=== PATIENT | female | born 1980 | race Caucasian/White ===

== ENCOUNTER 2018-06-09 04:31 | Emergency (ER) | payer SELFPAY ==
[~2018-06-09] VITALS: Ht 157.5 cm; Wt 54.4 kg
[~2018-06-09 04:31] MED LIST: ALBU8.5H8 IH; DIPH25CA83 PO
--- NOTE | 2018-06-09 04:48 | NUR ---
Dr Arteaga into eval patient
--- NOTE | 2018-06-09 04:50 | NUR ---
Avel larkin in ED - 06/09/[address] Arteaga at [facility] for JENNIFER.
[2018-06-09 05:21] LABS: BASOPHILS # (AUTO) 0.1 K/uL (0.0-8.0); BASOPHILS % (AUTO) 1.2 % (0.0-2.0); EOSINOPHILS # (AUTO) 0.3 K/uL (0.0-0.7); EOSINOPHILS % (AUTO) 4.5 % (0.0-7.0); HEMATOCRIT 38.6 % (31.2-41.9); HEMOGLOBIN 13.3 g/dL (10.9-14.3); LYMPHOCYTES # (AUTO) 2.1 K/uL (20.0-40.0); LYMPHOCYTES % (AUTO) 37.2 % (20.5-51.5); MEAN CORPUSCULAR HEMOGLOBIN 32.4 uug (24.7-32.8); MEAN CORPUSCULAR HGB CONC 34 g/dL (32.3-35.6); MEAN CORPUSCULAR VOLUME 94.1 fL (75.5-95.3); MONOCYTES # (AUTO) 0.8 K/uL (2.0-10.0); MONOCYTES % (AUTO) 13.8 % (0.0-11.0); NEUTROPHILS # (AUTO) 2.5 K/uL (1.8-8.9); NEUTROPHILS % (AUTO) 43.3 % (38.5-71.5); PLATELET COUNT (AUTO) 283 K/uL (179-408); WHITE BLOOD COUNT (AUTO) 5.7 K/uL (3.8-11.8)
[2018-06-09 05:23] LABS: CREATININE 0.8 mg/dL (0.6-1.3)
[2018-06-09 05:35] LABS: BILIRUBIN,DIRECT 0.1 mg/dL (0.0-0.2); BILIRUBIN,TOTAL 0.4 mg/dL (0.2-1.0); TOTAL PROTEIN, SERUM 7.2 g/dL (6.4-8.2)
--- NOTE | 2018-06-09 05:40 | NUR ---
Ultrasound at bedside.
--- NOTE | 2018-06-09 06:01 | NUR ---
Patient discharged to home in stable conditon. Written and verbal after care instructions given. Patient verbalizes understanding of instructions. Pt ambulated out of ER with steady gait, no acute signs of distress, VSS, all belongings taken.
[2018-06-09 06:03] VITALS: BP 131/69
== END 2018-06-09 06:03 | disposition home or self-care (01) ==
LOC: ER 04:35
DX: R60.9 Edema, unspecified (principal); J45.909 Unspecified asthma, uncomplicated; F17.200 Nicotine dependence, unspecified, uncomplicated; F11.10 Opioid abuse, uncomplicated; F15.10 Other stimulant abuse, uncomplicated
CPT/HCPCS: 36415; 71045; 80048; 80076; 83880; 84484; 85025; 85730; 93970; 99285; A4663; 70030-TC

== ENCOUNTER 2019-09-10 03:42 | Emergency (ER) | payer MEDICAID, OTHER ==
[~2019-09-10] VITALS: Ht 162.6 cm; Wt 56.7 kg
[2019-09-10] MEDS ORDERED: predniSONE 20 MG TABLET ONE (04:25)
[2019-09-10] MEDS ORDERED: ALBUTEROL SULFATE 2.5 MG/3 ML NEBU ONE (04:26)
[2019-09-10] MEDS ORDERED: IPRATROPIUM BROMIDE 0.5 MG/2.5 ML NEBU ONE (04:27)
[2019-09-10] MEDS ORDERED: predniSONE 10 MG TABLET PO ONE (04:30)
[2019-09-10] MEDS ORDERED: ALBUTEROL SULFATE 2.5 MG/3 ML NEBU NEB ONE (04:30)
[2019-09-10] MEDS ORDERED: IPRATROPIUM BROMIDE 0.5 MG/2.5 ML NEBU NEB ONE (04:30)
[2019-09-10 04:45] LABS: BASOPHILS % (AUTO) 0.9 % (0.0-2.0); EOSINOPHILS # (AUTO) 0.4 K/uL (0.0-0.7); EOSINOPHILS % (AUTO) 8.5 % (0.0-7.0); HEMATOCRIT 40.7 % (31.2-41.9); HEMOGLOBIN 13.7 g/dL (10.9-14.3); LYMPHOCYTES % (AUTO) 38.8 % (20.5-51.5); MEAN CORPUSCULAR HEMOGLOBIN 31.9 uug (24.7-32.8); MEAN CORPUSCULAR HGB CONC 34 g/dL (32.3-35.6); MEAN CORPUSCULAR VOLUME 95.1 fL (75.5-95.3); MONOCYTES # (AUTO) 0.7 K/uL (2.0-10.0); MONOCYTES % (AUTO) 14.1 % (0.0-11.0); NEUTROPHILS % (AUTO) 37.7 % (38.5-71.5); PLATELET COUNT (AUTO) 214 K/uL (179-408); RED BLOOD CELL COUNT(AUTO) 4.28 MIL/uL (3.63-4.92); WHITE BLOOD COUNT (AUTO) 5.2 K/uL (3.8-11.8)
[2019-09-10 04:51] LABS: CREATININE 0.7 mg/dL (0.6-1.3); POTASSIUM 4.1 mmol/L (3.5-5.1)
--- NOTE | 2019-09-10 04:55 | NUR ---
CONTINOUE WITH SHORTNESS OF BREATH RECEIVING NEB TREATMENT.
[2019-09-10 05:04] LABS: BILIRUBIN,DIRECT 0.1 mg/dL (0.0-0.2); BILIRUBIN,TOTAL 0.3 mg/dL (0.2-1.0); TOTAL PROTEIN, SERUM 7.4 g/dL (6.4-8.2)
--- NOTE | 2019-09-10 06:02 | NUR ---
PATIENT HAS COMPLETED AERSOL NEB. O2 TREATMENT STATES SHE FEELS BETTER WILL GO HOME WITH INSTRUCTIONS.
[2019-09-10 06:10] VITALS: BP 132/86
== END 2019-09-10 06:15 | disposition home or self-care (01) ==
LOC: ER 03:42
DX: J45.901 Unspecified asthma with (acute) exacerbation (principal); F17.210 Nicotine dependence, cigarettes, uncomplicated; F11.10 Opioid abuse, uncomplicated; F15.10 Other stimulant abuse, uncomplicated; F14.10 Cocaine abuse, uncomplicated; Z79.899 Other long term (current) drug therapy
CPT/HCPCS: 36415; 71045; 80048; 80076; 83880; 84484; 84702; 85025; 85379; 93005; 94644; 99285; J7512; 70030-TC; A4663; J3590

== ENCOUNTER 2020-06-30 04:01 | Emergency (ER) | payer OTHER ==
[~2020-06-30] VITALS: Ht 162.6 cm; Wt 55.8 kg
--- NOTE | 2020-06-30 04:15 | NUR ---
Dr. Faye at bedside for MSE
[2020-06-30] MEDS ORDERED: FLUORESCEIN SODIUM 1 MG STRIP ONE (04:27)
[2020-06-30] MEDS ORDERED: TETRACAINE HCL 0.5% OPHT DROP 2 ML BOTTLE ONE (04:27)
[2020-06-30] MEDS ORDERED: TETRACAINE HCL 0.5% OPHT DROP 2 ML BOTTLE OP ONE ×2 (04:30)
[2020-06-30] MEDS ORDERED: FLUORESCEIN SODIUM 1 MG STRIP OP ONE (04:30)
--- NOTE | 2020-06-30 04:51 | NUR ---
Patient discharged to home in stable condition. Written and verbal after care instructions given. Patient verbalizes understanding of instructions. Stressed follow up or return to ER for worsening s/s. aa/ox4. able to speak in complete sentences. in stable condition no s/s of distress ambulatory with steady gait all belongings with pt
[2020-06-30 04:53] VITALS: BP 110/97
== END 2020-06-30 04:55 | disposition home or self-care (01) ==
LOC: ER 04:05
DX: S05.02XA Injury of conjunctiva and corneal abrasion without foreign body, left eye, initial encounter (principal); V49.40XA Driver injured in collision with unspecified motor vehicles in traffic accident, initial encounter; W22.11XA Striking against or struck by driver side automobile airbag, initial encounter; Y92.410 Unspecified street and highway as the place of occurrence of the external cause; F17.210 Nicotine dependence, cigarettes, uncomplicated; J45.909 Unspecified asthma, uncomplicated; Z86.19 Personal history of other infectious and parasitic diseases
CPT/HCPCS: 71045; A4663

== ENCOUNTER 2021-01-19 23:43 | Emergency (ER) | payer OTHER ==
[~2021-01-19] VITALS: Ht 162.6 cm; Wt 56.7 kg
--- NOTE | 2021-01-19 23:59 | NUR ---
Patient ambulated with stable gait. A/Ox4. Speech is clear, speaks in complete sentences. Patient came for c/o SOB, wheezing noted in U+L lobes. Denies any cp, palpitations, or chest discomfort.
[2021-01-20] MEDS ORDERED: IPRATROPIUM BROMIDE 0.5 MG/2.5 ML NEBU NEB ONE
[2021-01-20] MEDS ORDERED: ALBUTEROL SULFATE 2.5 MG/3 ML NEBU NEB ONE
[2021-01-20] MEDS ORDERED: predniSONE 20 MG TABLET PO ONE
--- NOTE | 2021-01-20 00:01 | NUR ---
RT at bedside for bxtx.
[2021-01-20] MEDS ORDERED: predniSONE 20 MG TABLET ONE (00:02)
[2021-01-20] MEDS ORDERED: IPRATROPIUM BROMIDE 0.5 MG/2.5 ML NEBU ONE (00:08)
[2021-01-20] MEDS ORDERED: ALBUTEROL SULFATE 2.5 MG/3 ML NEBU ONE (00:08)
[2021-01-20] MEDS ORDERED: AZITHROMYCIN 250 MG TABLET PO ONE (00:30)
[2021-01-20 00:38] VITALS: BP 138/77
[2021-01-20] MEDS ORDERED: AZITHROMYCIN 250 MG TABLET ONE (00:40)
== END 2021-01-20 00:38 | disposition home or self-care (01) ==
LOC: ER 23:46
DX: J45.909 Unspecified asthma, uncomplicated (principal); F17.210 Nicotine dependence, cigarettes, uncomplicated
CPT/HCPCS: 94640; 99283; J7512; J3590; Q0144